=== PATIENT | male | born 1950 | race Caucasian/White ===

== ENCOUNTER → 2020-06-26 | Outpatient (CLI) | payer MEDICARE, OTHER ==
[~2020-06-26] MED LIST: CATHETER FLUSH 10 ML SYR IV PRN; HOLD METFORMIN - RECEIVED CONTRAST 20 ML VIAL IV SCH; IOHEXOL 350 MG/ML 100 ML (OMNIPAQUE 350) VIAL IV ONE; NS 100 ML (IVPB) BAG IV ONE
--- NOTE | 2020-06-26 10:20 | Diagnostic Imaging Report ---
PROCEDURE: CT abdomen and pelvis with contrast. TECHNIQUE: Multiple contiguous axial images were obtained through the abdomen and pelvis after administration of intravenous contrast. Auto Exposure Controls were utilized during the CT exam to meet ALARA standards for radiation dose reduction. All CT scans use one or more of the following dose optimizing techniques: automated exposure control, MA and/or KvP adjustment based on patient size and exam type or iterative reconstruction. INDICATION: Generalized abdominal pain There are no prior studies available for comparison. The liver is not enlarged but the liver has somewhat of a microlobulated contour. This appearance does raise a question of cirrhosis. The spleen is prominent measuring approximately 12.8 cm in length. There is no focal mass involving the spleen. There is no evidence for splenic varices either. The gallbladder, kidneys, pancreas, adrenals, aorta and inferior vena cava are unremarkable for an acute abnormality. There is contrast throughout much of the inferior vena cava. This finding is nonspecific but has been associated with right heart failure. Images through the lower thorax to show that there is cardiomegaly. There are pacemaker leads in place. There is also minimal atelectasis/infiltrate involving both lung bases. The stomach is not well-distended and consequently difficult to assess. Nasogastric abnormality identified. There are surgical sutures in the right mid abdomen about the colon. There does appear the patient has undergone a prior right hemicolectomy. There are scattered diverticula throughout the colon but there is no sign of acute diverticulitis. There is fluid extending into both paracolic gutters and there is a small to moderate amount of free fluid along the pelvis as well. The prostate gland is borderline enlarged measuring approximately 5 cm (normal 5 cm or less). The urinary bladder is not well-distended and consequently difficult to assess. There has been a prior repair of ventral hernia. The repair seems to be intact. The bone windows are unremarkable for fracture or for destructive lesion. There is a smooth 1.4 cm bony excrescence along the lateral aspect of the left ilium. This may be a sequela of prior trauma. IMPRESSION: 1. There is a small to moderate amount of ascites. This is of uncertain etiology. However the appearance of the liver and the slight prominence of the spleen does raise a question of cirrhosis. Clinical followup is recommended. 2. There are postsurgical changes consistent with prior right hemicolectomy. There is no acute abnormality of the abdomen or pelvis noted otherwise. 3. There is cardiomegaly and evidence of contrast within the inferior vena cava may be related to right heart failure. Dictated by: Dictated on workstation # [id number]
== END ==
LOC: RAD FS 08:39
PROVIDERS: ATTEND Nurse Practitioner Family
DX: I51.7 Cardiomegaly (principal)
CPT/HCPCS: 74177

== ENCOUNTER → 2021-09-01 | Outpatient (CLI) | payer MEDICARE, OTHER ==
[2021-09-01 15:25] LABS: BILIRUBIN,TOTAL 0.7 MG/DL (0.1-1.0); CALCIUM 9.8 MG/DL (8.5-10.1); CREATININE SERUM 1.84 MG/DL (0.60-1.30); POTASSIUM 6.1 MMOL/L (3.6-5.0)
[2021-09-01 15:26] LABS: ALBUMIN 4.4 GM/DL (3.2-4.5); TOTAL PROTEIN 7.9 GM/DL (6.4-8.2)
== END ==
LOC: LAB FS 13:21
PROVIDERS: ATTEND Nurse Practitioner Family
DX: E87.5 Hyperkalemia (principal); R94.5 Abnormal results of liver function studies
CPT/HCPCS: 36415; 80053

== ENCOUNTER 2022-05-07 14:59 | Emergency (ER) | payer MEDICARE, OTHER ==
[~2022-05-07] VITALS: Ht 185.5 cm; Wt 86.2 kg
[2022-05-07] MEDS ORDERED: fentaNYL INJ 100 MCG/2 ML AMP IVP PRN (15:30)
[2022-05-07] MEDS ORDERED: ONDANSETRON 4 MG/2 ML (SDV) Z0FRAN IVP ONE (15:30)
[2022-05-07] MEDS ORDERED: NS IV 1000 ML 500 ML IV SCH (15:30)
[2022-05-07 15:32] LABS: BASOPHILS % (AUTO) 0 % (0-10); EOSINOPHILS # (AUTO) 0.1 10^3/uL (0.0-0.3); EOSINOPHILS % (AUTO) 1 % (0-10); HEMATOCRIT 26 % (40-54); HEMOGLOBIN 8.2 g/dL (13.3-17.7); LYMPHOCYTES # (AUTO) 0.6 X 10^3 (1.0-4.0); LYMPHOCYTES % (AUTO) 8 % (12-44); MEAN CORPUSCULAR HEMOGLOBIN 30 pg (25-34); MEAN CORPUSCULAR HGB CONC 31 g/dL (32-36); MEAN CORPUSCULAR VOLUME 96 fL (80-99); MEAN PLATELET VOLUME 9.1 fL (9.0-12.2); MONOCYTES # (AUTO) 0.5 X 10^3 (0.0-1.0); MONOCYTES % (AUTO) 7 % (0-12); NEUTROPHILS # (AUTO) 6.3 X 10^3 (1.8-7.8); NEUTROPHILS % (AUTO) 85 % (42-75); PLATELET COUNT 51 10^3/uL (130-400); WHITE BLOOD COUNT 7.4 10^3/uL (4.3-11.0)
--- NOTE | 2022-05-07 15:34 | ED Abdominal Pain ---
General Chief Complaint: Abdominal/GI Problems Stated Complaint: ABD SWELLING; DIZZINESS; VOMITING Source of Information: Patient Exam Limitations: No Limitations History of Present Illness Date Seen by Provider: May 07, 2022 Time Seen by Provider: 15:00 Initial Comments Patient is a 71-year-old male with history of hemodialysis who presents with nausea vomiting diarrhea periumbilical pain. Symptoms began this morning with abdominal pain this morning with constipation. Patient took a stool softener and has had multiple loose stools prior to dialysis, with nausea and vomiting during dialysis. Patient was given IV fluids but did not complete dialysis. History of partial small bowel resection and bowel obstruction and abdominal wall hernia repair. No other symptoms or complaints Timing/Duration: 1-3 Hours Severity/Quality: Other Location: Other Radiation: Other Activities at Onset: Other Modifying Factors: Improves With Other Associated Symptoms: Other Allergies and Home Medications Allergies Coded Allergies: No Known Drug Allergies (Unverified , 05/07/22) Patient Home Medication List Home Medication List Reviewed: Yes Review of Systems Review of Systems Constitutional: see HPI EENTM: See HPI Respiratory: See HPI Cardiovascular: See HPI Gastrointestinal: See HPI Genitourinary: See HPI Musculoskeletal: see HPI Skin: see HPI Psychiatric/Neurological: See HPI Endocrine: See HPI Hematologic/Lymphatic: See HPI All Other Systems Reviewed Negative Unless Noted: No Past Xjalcan-Igzhzu-Yqjlnp Hx Patient Social History Tobacco Use?: No Physical Exam Vital Signs Vital Signs - First Documented 05/07/22 15:07 Temp 35.9 Pulse 72 Resp 18 B/P (MAP) 94/53 (67) Pulse Ox 97 O2 Delivery Room Air Capillary Refill : Height/Weight/BMI Height: '" Weight: lbs. oz. kg; BMI Method: General Appearance: WD/WN, no apparent distress HEENT: PERRL/EOMI Neck: full range of motion Respiratory: lungs clear, normal breath sounds Cardiovascular: normal peripheral pulses, regular rate, rhythm Gastrointestinal: soft; No abnormal bowel sounds, No distended; tenderness (Periumbilical pain/hernia), hernia (Periumbilical) Extremities: swelling Neurologic/Psychiatric: normal mood/affect, oriented x 3 Focused Exam Sepsis Stage: Ruled Out Lactate Level 05/07/22 15:59: Lactic Acid Level 1.51 Lactic Acid Level Laboratory Tests Test 05/07/22 15:59 Lactic Acid Level 1.51 MMOL/L (0.50-2.00) Progress/Results/Core Measures Results/Orders Lab Results Laboratory Tests Test 05/07/22 15:15 05/07/22 15:59 Range/Units White Blood Count 7.4 4.3-11.0 10^3/uL Red Blood Count 2.74 L 4.30-5.52 10^6/uL Hemoglobin 8.2 L 13.3-17.7 g/dL Hematocrit 26 L 40-54 % Mean Corpuscular Volume 96 80-99 fL Mean Corpuscular Hemoglobin 30 25-34 pg Mean Corpuscular Hemoglobin Concent 31 L 32-36 g/dL Red Cell Distribution Width 18.2 H 10.0-14.5 % Platelet Count 51 L 130-400 10^3/uL Mean Platelet Volume 9.1 9.0-12.2 fL Neutrophils (%) (Auto) 85 H 42-75 % Lymphocytes (%) (Auto) 8 L 12-44 % Monocytes (%) (Auto) 7 0-12 % Eosinophils (%) (Auto) 1 0-10 % Basophils (%) (Auto) 0 0-10 % Neutrophils # (Auto) 6.3 1.8-7.8 X 10^3 Lymphocytes # (Auto) 0.6 L 1.0-4.0 X 10^3 Monocytes # (Auto) 0.5 0.0-1.0 X 10^3 Eosinophils # (Auto) 0.1 0.0-0.3 10^3/uL Basophils # (Auto) 0.0 0.0-0.1 10^3/uL Neutrophils % (Manual) 89 % Lymphocytes % (Manual) 3 % Monocytes % (Manual) 1 % Basophils % (Manual) 0 % Percent Immature Platelet Fraction 3.9 0.0-7.6 % Sodium Level 134 L 135-145 MMOL/L Potassium Level 3.4 L 3.6-5.0 MMOL/L Chloride Level 92 L 98-107 MMOL/L Carbon Dioxide Level 31 21-32 MMOL/L Anion Gap 11 5-14 MMOL/L Blood Urea Nitrogen 29 H 7-18 MG/DL Creatinine 3.09 H 0.60-1.30 MG/DL Estimat Glomerular Filtration Rate 21 BUN/Creatinine Ratio 9 Glucose Level 106 H 70-105 MG/DL Calcium Level 9.4 8.5-10.1 MG/DL Corrected Calcium 9.6 8.5-10.1 MG/DL Total Bilirubin 1.2 H 0.1-1.0 MG/DL Aspartate Amino Transf (AST/SGOT) 28 5-34 U/L Alanine Aminotransferase (ALT/SGPT) 14 0-55 U/L Alkaline Phosphatase 176 H 40-136 U/L Total Protein 6.8 6.4-8.2 GM/DL Albumin 3.8 3.2-4.5 GM/DL Lactic Acid Level 1.51 0.50-2.00 MMOL/L My Orders Orders - SOFIE BARLOW DO Cbc With Automated Diff (05/07/22 15:27) Comprehensive Metabolic Panel (05/07/22 15:27) Lactic Acid Analyzer (05/07/22 15:27) Ct Abdomen/Pelvis Wo (05/07/22 15:27) Ondansetron Injection (Zofran Injectio (05/07/22 15:30) Fentanyl Inj (Sublimaze Injection) (05/07/22 15:30) Ns Iv 1000 Ml (Sodium Chloride 0.9%) (05/07/22 15:30) Chest 1 View Ap/Pa Only (05/07/22 16:08) Manual Differential (05/07/22 15:15) Medications Given in ED Current Medications Medications Dose Ordered Sig/Genet Route Start Time Stop Time Status Last Admin Dose Admin Fentanyl Citrate 50 mcg Q1H PRN IVP 05/07/22 15:30 05/07/22 15:43 50 MCG Ondansetron HCl 4 mg ONCE ONCE IVP 05/07/22 15:30 05/07/22 15:31 DC 05/07/22 15:42 4 MG Vital Signs/I&O 05/07/22 15:07 Temp 35.9 Pulse 72 Resp 18 B/P (MAP) 94/53 (67) Pulse Ox 97 O2 Delivery Room Air Departure Communication (Admissions) CT abd/pelvis: moderate volume ascitiis, no acute findings. Abdominal pain, n/v/d with low blood pressure at dialysis. IV fluids, antiemetics and pain Occasions given. Abdomen soft, non-distended, large midline low abdominal wall hernia present without incarceration. CT abd/pelvis reveals ascitiis without acute process. Patient with h/o cirrhosis. Labwork reviewed and reassuring. IVF, anti-emetic, and pain medications given with clinical improvement. Suspect GI illness prevalent in the community. Recommendations are watchful waiting PCP follow-up and supportive care. Return precautions reviewed. Patient verbalizes understanding agreement with discharge instructions prior to discharge Impression Primary Impression: Abdominal pain Additional Impression: Vomiting and diarrhea Disposition: HOME, SELF-CARE Condition: Stable Departure-Patient Inst. Decision time for Depature: 16:38 Referrals: KALPANA GARCIA APRN (PCP) Primary Care Physician [facility] (Family) Primary Care Physician Patient Instructions: Nausea and Vomiting, Adult ED, Abdominal Pain, Adult ED, Diarrhea, Adult ED Add. Discharge Instructions: You were evaluated in the emergency department for abdominal pain vomiting and diarrhea. Lab work and CT were performed and are nondiagnostic. The exact cause of your symptoms has not been determined. Please go home and rest, take newly prescribed medication as directed drink clear liquids only for the next several hours and increase to a bland diet as tolerated. Follow-up with your PCP early next week if symptoms persist. Return to the ED if new or worsening symptoms peer All discharge instructions reviewed with patient and/or family. Voiced understanding. Scripts Ondansetron (Ondansetron Odt) 8 Mg Tab.rapdis 8 MG SL Q6H PRN for NAUSEA/VOMITING, #12 TAB Prov: SOFIE BARLOW DO 05/07/22 SOFIE BARLOW DO May 07, 2022 15:34
[2022-05-07 15:52] LABS: ALBUMIN 3.8 GM/DL (3.2-4.5); BILIRUBIN,TOTAL 1.2 MG/DL (0.1-1.0); CALCIUM 9.4 MG/DL (8.5-10.1); CREATININE SERUM 3.09 MG/DL (0.60-1.30); POTASSIUM 3.4 MMOL/L (3.6-5.0); TOTAL PROTEIN 6.8 GM/DL (6.4-8.2)
--- NOTE | 2022-05-07 16:00 | Diagnostic Imaging Report ---
PROCEDURE: CT abdomen and pelvis without contrast. TECHNIQUE: Multiple contiguous axial images were obtained through the abdomen and pelvis without the use of intravenous contrast. Auto Exposure Controls were utilized during the CT exam to meet ALARA standards for radiation dose reduction. INDICATION: Abdominal pain. There are some patchy infiltrates at the left lung base. There is a moderate amount ascites present. Liver is unremarkable. There are stones layering out in the dependent portion of the gallbladder. Pancreas is normal. Spleen is not enlarged. There is a calculus in lower pole of the left kidney. Right kidney is unremarkable. There is no hydronephrosis in either kidney. Small bowel is not dilated. There are postsurgical changes from partial small bowel resection. The appendix is not seen. There is diverticulosis of the colon without evidence of diverticulitis. Urinary bladder and prostate are unremarkable. IMPRESSION: Large volume of ascites. There is cholecystolithiasis. There is some patchy infiltrate at left lung base. There is a tiny left renal calculus. Dictated by: Dictated on workstation # [id number]
[2022-05-07 16:16] LABS: BASOPHILS % (MANUAL) 0 %; LYMPHOCYTES % (MANUAL) 3 %; MONOCYTES % (MANUAL) 1 %; NEUTROPHILS % (MANUAL) 89 %
--- NOTE | 2022-05-07 16:23 | Diagnostic Imaging Report ---
INDICATION: Shortness of breath. EXAMINATION: Portable chest, 4:13 p.m. FINDINGS: Right IJ central line tip projects over the SVC. There is a dual-chamber pacemaker. Heart size and pulmonary vascularity are normal. Lungs are clear. There are no effusions or pneumothoraces. IMPRESSION: No acute abnormalities in the chest. Dictated by: Dictated on workstation # [id number]
[2022-05-07] MEDS ORDERED: ONDA8TAB13 SL (16:40)
[2022-05-07 16:50] VITALS: BP 95/64
== END 2022-05-07 16:51 | disposition home or self-care (01) ==
LOC: EDUNIT# 14:59 → ER FS 15:00
DX: R11.2 Nausea with vomiting, unspecified (principal); R19.7 Diarrhea, unspecified; R10.33 Periumbilical pain
CPT/HCPCS: 36415; 71045; 74176; 80053; 83605; 85007; 85025; 85027